=== PATIENT | male | born 1970 | race Caucasian/White ===

== ENCOUNTER → 2018-02-07 | Outpatient (CLI) | payer OTHER, MEDICARE ==
[~2018-02-07] MED LIST: HYDR-3820; HYDR-3820 PO; METH750T3; NORT10CA
--- NOTE | 2018-02-07 16:18 | Diagnostic Imaging Report ---
EXAMINATION: Lumbar spine at 4:13 p.m. INDICATION: Back pain. AP, lateral, and spot lateral views were obtained. There are no prior studies available for comparison. FINDINGS: There are intervertebral cages at the L5-S1 level. The orthopedic hardware seems to be in good position. The other intervertebral spaces appear to be fairly well maintained. There is no fracture or acute bony abnormality evident. There is no sign of a paraspinal mass. There is mild symmetrical sclerosis of the sacroiliac joints. IMPRESSION: 1. There is no evidence for an acute bony abnormality. 2. The intervertebral cages at the L5-S1 level appear to be in good position. 3. If clinical concern regarding an underlying abnormality persists and further imaging is desired, then MRI would be recommended. Dictated by: Dictated on workstation # [id number]
--- NOTE | 2018-02-07 16:22 | Diagnostic Imaging Report ---
EXAMINATION: Left hip at 4:14 p.m. INDICATION: Hip pain. AP and lateral views were obtained. There are no prior studies available for comparison. FINDINGS: There is no fracture, dislocation, or acute bony abnormality evident. The hip joint itself is fairly well maintained. There is a small 9 mm rounded area of low density with a thin sclerotic border in the femoral neck. This is of uncertain etiology but most likely a benign process. The soft tissues are unremarkable. IMPRESSION: There is no evidence for an acute bony abnormality. Dictated by: Dictated on workstation # [id number]
== END ==
LOC: RAD 15:35
PROVIDERS: ATTEND Family Medicine
DX: M25.552 Pain in left hip (principal); M54.5 Low back pain
CPT/HCPCS: 72100; 73502

== ENCOUNTER 2018-02-10 06:10 | Emergency (ER) | payer OTHER, MEDICARE ==
[~2018-02-10] VITALS: Ht 188 cm; Wt 99.8 kg
[2018-02-10] MEDS ORDERED: METH750T3 (07:16)
[2018-02-10] MEDS ORDERED: NORT10CA (07:16)
[2018-02-10] MEDS ORDERED: HYDR-3820 (07:16)
[2018-02-10] MEDS ORDERED: HYDROmorphone 1 MG/ML (DILAUDID) 1 ML SYRINGE IM STA (07:18)
--- NOTE | 2018-02-10 07:46 | ED Hip Pain/Injury ---
General Chief Complaint: Hip/Pelvic Problems Stated Complaint: LEFT HIP PAIN Nursing Triage Note: ARRIVED VIA AMB TO ROOM 07 ON [facility] WITH COMPLAINTS OF SEVERE LEFT HIP PAIN THAT STARTED A WEEK AGO MONDAY. NON INUJURY. HAS BEEN TO THE DR AND ER. HAS BEEN PRESCRIBED PAIN MEDS AND STEROIDS. Source: patient Exam Limitations: no limitations History of Present Illness Date Seen by Provider: Feb 10, 2018 Time Seen by Provider: 07:05 Initial Comments Here with report of pain to the left hip that started about a week ago. States he was walking across the driveway and had sharp pain. This has worsened and persisted since. He has had x-ray done by his provider. He was due to have CT scan of his extremity as well due to abnormality noted that appears to be a cyst in the left hip. Also has history of lumbar surgery with orthopedic care. His pain meds are not working. Pain radiates from the left hip down the left leg. Here due to intractable pain. Timing/Duration: week, getting worse Severity: moderate, severe Location: hip (L) Method of Injury: unknown Modifying Factors: Worse With Immobilization; Improves With Movement, Improves With Pain Medication Associated Symptoms: No fever, No groin pain; pain radiating to knees, trouble walking Allergies and Home Medications Allergies Coded Allergies: morphine (Verified Allergy, Unknown, NAUSEA, 02/10/18) Patient Home Medication List Home Medication List Reviewed: Yes Constitutional: see HPI; No chills, No fever EENTM: no symptoms reported Respiratory: no symptoms reported; No short of breath, No wheezing Cardiovascular: No chest pain, No edema Gastrointestinal: No abdominal pain, No nausea, No vomiting Genitourinary: no symptoms reported Musculoskeletal: see HPI, joint pain, muscle pain, muscle stiffness Skin: no symptoms reported All Other Systems Reviewed Negative Unless Noted: Yes Past Sicnusz-Csfrjp-Qthsun Hx Past Med/Social Hx: Reviewed Nursing Past Med/Soc Hx Patient Social History Alcohol Use: Denies Use Recreational Drug Use: No Smoking Status: Current Everyday Smoker Recent Foreign Travel: No Contact w/Someone Who Travel: No Recent Infectious Disease Expo: No Past Medical History Surgeries: Yes Gallbladder, Orthopedic Respiratory: No Cardiac: No Neurological: No Genitourinary: No Gastrointestinal: No Musculoskeletal: Yes (CAGE FUSION, ) HEENT: No Cancer: No Psychosocial: No Family Medical History Reviewed Nursing Family Hx Physical Exam Vital Signs Vital Signs - First Documented 02/10/18 07:00 Temp 98.0 Pulse 56 Resp 18 B/P (MAP) 155/103 (120) Pulse Ox 97 O2 Delivery Room Air Capillary Refill : Less Than 3 Seconds General Appearance: No Apparent Distress, WD/WN Neck: Non Tender, Supple Cardiovascular: Regular Rate, Rhythm, No Murmur Respiratory: Lungs Clear, Normal Breath Sounds Gastrointestinal: Non Tender, Soft Back: Normal Inspection, No CVA Tenderness, No Vertebral Tenderness Extremity: Normal Range of Motion, Non Tender Neurologic/Psychiatric: Alert, Oriented x3 Skin: Normal Color, Warm/Dry Progress/Results/Core Measures Results/Orders My Orders Orders - RONY SMITH MD Hydromorphone Injection (Dilaudid Inje (02/10/18 07:18) Ct Lumbar Spine Wo (02/10/18 07:20) Ct Extremity Lower Left Wo (02/10/18 07:20) Hydromorphone Injection (Dilaudid Inje (02/10/18 07:47) Vital Signs/I&O 02/10/18 07:00 Temp 98.0 Pulse 56 Resp 18 B/P (MAP) 155/103 (120) Pulse Ox 97 O2 Delivery Room Air Blood Pressure Mean: 120 Progress Progress Note : Progress Note Seen and evaluated. We will get CT scan of the lumbar spine and left hip given persistence and worsening of symptoms. Dilaudid 2 mg IM ordered. 0745: Patient unable to lie flat on CT table. Dilaudid 1 mg IM ordered to help pain. Monitor patient. 0900: Overall tolerating pain better. CT results discussed with the patient. I will send a copy of the chart over to Dr. Phillips. I do believe he needs orthopedic referral given the CT findings of the hip. 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 Discharged home with return precautions. Patient and family verbalize understanding instructions and agreement with plan. Diagnostic Imaging Diagonstic Imaging: CT Plain Films/CT/US/NM/MRI: other Comments [facility] [place], [place] NAME: FELIBERTO PATEL MED REC#: [id number] PT STATUS: REG ER : 1970 PHYSICIAN: RONY SMITH MD ADMIT DATE: 02/10/18/ER Draft Date of Exam:02/10/18 CT LUMBAR SPINE WO PROCEDURE: CT lumbar spine without contrast. TECHNIQUE: Multiple contiguous axial images were obtained through the lumbar spine without the use of intravenous contrast. Sagittal and coronal reformations were then performed. INDICATION: Prior lumbar spine surgery. Left hip pain. COMPARISON: Lumbar spine radiographs 02/07/2018. FINDINGS: There are 5 lumbar type vertebral bodies. Normal alignment. Vertebral body heights are preserved. No fractures. There are postoperative findings of an interbody fusion at L5-S1. No fractures. No evidence of high-grade spinal canal narrowing on this noncontrast exam. No high-grade osseous neural foraminal narrowing. Mild atherosclerotic calcifications. The visualized abdominal and pelvic contents are otherwise unremarkable. IMPRESSION: 1. No acute CT findings in the lumbar spine. No evidence of high-grade neural impingement on this noncontrast exam. 2. Interbody fusion at L5-S1. Dictated on workstation # [id number] Dict: 02/10/18 08 Trans: 02/10/18 0829 [facility] [id number] Interpreted by: DARIUSZ PHILLIPS MD Electronically signed by: Reviewed: Reviewed by Me Diagonstic Imaging: CT Plain Films/CT/US/NM/MRI: other Comments [facility]IA [place], [place] NAME: FELIBERTO PATEL Ally [facility] REC#: [id number] PT STATUS: REG ER : 1970 PHYSICIAN: RONY SMITH MD ADMIT DATE: 02/10/18/ER Draft Date of Exam:02/10/18 CT EXTREMITY LOWER LEFT WO PROCEDURE: CT left lower extremity without contrast. TECHNIQUE: Multiple contiguous axial images were obtained through the left lower extremity without the use of intravenous contrast. Sagittal and coronal reformations were then performed. INDICATION: Left hip pain for one week. COMPARISON: Lumbar spine CT performed concurrently. FINDINGS: No fracture in the left hemipelvis or proximal left femur. 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 No acetabular retroversion. No accelerated secondary osteoarthritic changes in the left hip. No appreciable hip effusion by CT. The left hip musculature and proximal thigh musculature is grossly normal. No free pelvic fluid. No inguinal lymphadenopathy or hernia. IMPRESSION: 1. No acute osseous abnormality about the left hip. 2. Morphology of the proximal femur that can result in Cam-type femoroacetabular impingement. Dictated on workstation # [id number] Dict: 02/10/18816 Trans: 02/10/18 0822 [facility] [id number] Interpreted by: MERNA LIMA MD Electronically signed by: Reviewed: Reviewed by Me Departure Impression Primary Impression: Left hip pain Disposition: HOME, SELF-CARE Condition: Stable Departure-Patient Inst. Decision time for Depature: 09:13 Referrals: JAMILA PHILLIPS DO (PCP/Family) Primary Care Physician Patient Instructions: Hip Bursitis (DC) Add. Discharge Instructions: All discharge instructions reviewed with patient and/or family. Voiced understanding. Take medications as directed. Follow-up with your doctor on Monday for recheck and further evaluation and you should seek orthopedic referral for evaluation of the hip as well. Return for worse pain, swelling, weakness, fever or other concerns as needed. Scripts Hydrocodone/Acetaminophen (Hydrocodon-Acetaminophn 10-325) 1 Each Tablet 1 EACH PO Q6H PRN for PAIN, #16 TAB 0 Refills Prov: RONY SMITH MD 02/10/18 Copy Copies To 1: JAMILA PHILLIPS TIMOTHY D MD Feb 10, 2018 07:46
[2018-02-10] MEDS: HYDROmorphone 1 MG/ML (DILAUDID) 1 ML SYRINGE IM STA ×2 (07:50→07:54)
--- NOTE | 2018-02-10 08:23 | Diagnostic Imaging Report ---
PROCEDURE: CT left lower extremity without contrast. TECHNIQUE: Multiple contiguous axial images were obtained through the left lower extremity without the use of intravenous contrast. Sagittal and coronal reformations were then performed. INDICATION: Left hip pain for one week. COMPARISON: Lumbar spine CT performed concurrently. FINDINGS: No fracture in the left hemipelvis or proximal left femur. 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 No acetabular retroversion. No accelerated secondary osteoarthritic changes in the left hip. No appreciable hip effusion by CT. The left hip musculature and proximal thigh musculature is grossly normal. No free pelvic fluid. No inguinal lymphadenopathy or hernia. IMPRESSION: 1. No acute osseous abnormality about the left hip. 2. Morphology of the proximal femur that can result in Cam-type femoroacetabular impingement. Dictated by: Dictated on workstation # [id number]
--- NOTE | 2018-02-10 08:29 | Diagnostic Imaging Report ---
PROCEDURE: CT lumbar spine without contrast. TECHNIQUE: Multiple contiguous axial images were obtained through the lumbar spine without the use of intravenous contrast. Sagittal and coronal reformations were then performed. INDICATION: Prior lumbar spine surgery. Left hip pain. COMPARISON: Lumbar spine radiographs 02/07/2018. FINDINGS: There are 5 lumbar type vertebral bodies. Normal alignment. Vertebral body heights are preserved. No fractures. There are postoperative findings of an interbody fusion at L5-S1. No fractures. No evidence of high-grade spinal canal narrowing on this noncontrast exam. No high-grade osseous neural foraminal narrowing. Mild atherosclerotic calcifications. The visualized abdominal and pelvic contents are otherwise unremarkable. IMPRESSION: 1. No acute CT findings in the lumbar spine. No evidence of high-grade neural impingement on this noncontrast exam. 2. Interbody fusion at L5-S1. Dictated by: Dictated on workstation # [id number]
[2018-02-10] MEDS ORDERED: HYDR-3820 PO (09:14)
[2018-02-10 09:31] VITALS: BP 131/91
== END 2018-02-10 09:31 | disposition home or self-care (01) ==
LOC: EDUNIT# 06:10 → ER 06:13
DX: M25.552 Pain in left hip (principal); F17.210 Nicotine dependence, cigarettes, uncomplicated; Z98.890 Other specified postprocedural states; Z88.5 Allergy status to narcotic agent
CPT/HCPCS: 72131; 73700; 96372

== ENCOUNTER → 2018-02-20 | Outpatient (CLI) | payer OTHER, MEDICARE ==
[~2018-02-20] VITALS: Ht 188 cm; Wt 99.8 kg
[~2018-02-20] MED LIST changes: +GADOBUTROL 7.5 MMOL/7.5 ML (GADAVIST) VIAL IV ONE; +IOHEXOL 300 MG/ML 50 ML (OMNIPAQUE 300) VIAL IV ONE; +LIDOCAINE 1% INJ 20 ML 20 ML VIAL INJ ONE; +LIDOCAINE 1% INJ 20 ML 20 ML VIAL ONE
[2018-02-20 14:10] VITALS: BP 134/80
[2018-02-20 14:38] VITALS: BP 119/74
--- NOTE | 2018-02-20 17:10 | Diagnostic Imaging Report ---
EXAMINATION: Magnetic resonance imaging of the pelvis and left hip with intra-articular contrast. DATE: February 20, 2018. COMPARISON: Left hip arthrogram February 20, 2018. CT February 10, 2018. Left hip radiographs February 07, 2018. INDICATION: 47-year-old male, left hip pain. Femoroacetabular impingement. TECHNIQUE: Magnetic Resonance Imaging sequences were performed of the pelvis and left hip following the administration of intra-articular contrast. TENDONS AND MUSCLES: The gluteus sarmad muscles and their origins and insertions are intact bilaterally. The tendons and muscles of the greater trochanter - gluteus minimus, piriformis, and gluteus medius - are intact bilaterally. Both common hamstring attachments on the ischial tuberosities are intact, and the extensor muscles of the thigh are intact. The visualized portions of the flexors and adductor muscles of the thigh and their attachments on the pelvis and hips are intact. Both iliopsoas and iliacus muscles are intact. The bilateral iliopsoas tendons are intact. HIPS AND SACROILIAC JOINTS: There is a synovial herniation pit at the left femoral head-neck junction. There is lack of the normal concavity at the bilateral femoral head-neck junctions. There is no os acetabuli. There is a small cleft of contrast in the region of the posterosuperior labrum, which may relate to normal variant. The left hip labrum appears intact. There is no paralabral cyst. There is a small tear involving the right hip superior labrum, best seen on coronal T2 fat-saturation sequence image 18, without associated paralabral cyst. There is no right hip joint effusion. The articular cartilage at the left hip appears grossly intact. There is no intra-articular body or prominent synovitis. There is no pronounced joint space loss of the right hip. The sacroiliac joints are unremarkable. LUMBAR SPINE: There is spinal hardware at L5-S1. BONE: There is no acute fracture, bone contusion, or evidence of osteonecrosis. BURSAE AND SOFT TISSUES: The bursae and soft tissues surrounding the pelvis and hips are within normal limits. IMPRESSION: 1. Lack of normal concavity at the bilateral femoral head-neck junctions. There is a left-sided synovial herniation pit. These are morphologic features which may be associated with cam-type femoroacetabular impingement which would be a clinical diagnosis. The left hip labrum appears intact. There is a small tear of the right hip superior labrum without paralabral cyst. Articular cartilage appears grossly intact. 2. Intact muscles and tendons. 3. No acute fracture, bone contusion, or evidence of osteonecrosis. Dictated by: Dictated on workstation # [id number]
--- NOTE | 2018-02-20 19:17 | Diagnostic Imaging Report ---
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 FINDINGS The patient was brought to the procedure room and placed on the table in the supine position. The skin of the left hip was prepped and draped in usual sterile fashion. A small amount of 1% lidocaine was utilized for local anesthesia. A 20-gauge needle was advanced with placement of its tip at the femoral head and neck junction laterally. A 15 mL solution of iodinated contrast, normal saline and gadolinium was injected under fluoroscopic observation. The needle was withdrawn and hemostasis was obtained. A total of 55 seconds of fluoroscopy was utilized. The patient tolerated the procedure well was sent to MRI in satisfactory condition. IMPRESSION: Fluoroscopically assisted left hip injection of gadolinium contrast solution for MRI. Dictated by: Dictated on workstation # [id number]
== END ==
LOC: RAD 13:52
PROVIDERS: ATTEND Orthopaedic Surgery
DX: S73.101A Unspecified sprain of right hip, initial encounter (principal)
CPT/HCPCS: 27093; 73525; 73722

== ENCOUNTER → 2019-11-11 | Outpatient (CLI) | payer OTHER, MEDICARE ==
[~2019-11-11] MED LIST changes: +ACHYD1T; +ACHYD1T PO; -GADOBUTROL 7.5 MMOL/7.5 ML (GADAVIST) VIAL IV ONE; -HYDR-3820; -HYDR-3820 PO; -IOHEXOL 300 MG/ML 50 ML (OMNIPAQUE 300) VIAL IV ONE; -LIDOCAINE 1% INJ 20 ML 20 ML VIAL INJ ONE; -LIDOCAINE 1% INJ 20 ML 20 ML VIAL ONE; -NORT10CA; +NRT10C
--- NOTE | 2019-11-11 09:40 | Diagnostic Imaging Report ---
EXAMINATION: Chest, 2 views. HISTORY: Left-sided chest pain for 3 days. Blunt force injury to the chest. COMPARISON: None available. FINDINGS: The lung volumes are normal. No focal consolidation is seen. No large pleural effusion or pneumothorax is seen. The cardiomediastinal silhouette is normal in size and contour. No acute osseous abnormality is seen. IMPRESSION: 1. No acute pleuroparenchymal process. 2. The report was called to Alexia Ruth APRN, by MANUEL@ 9:39 AM. Dictated by: Dictated on workstation # [id number]
== END ==
LOC: RAD 09:13
PROVIDERS: ATTEND Nurse Practitioner Family
DX: S29.9XXA Unspecified injury of thorax, initial encounter (principal)
CPT/HCPCS: 71046

== ENCOUNTER → 2022-12-20 | Outpatient (CLI) | payer MEDICARE, OTHER ==
[~2022-12-20] MED LIST changes: +METH-732; -METH750T3
--- NOTE | 2022-12-20 16:47 | Diagnostic Imaging Report ---
PROCEDURE: CT neck soft tissue without contrast. TECHNIQUE: Multiple contiguous axial images were obtained through the neck without the use of intravenous contrast. Auto Exposure Controls were utilized during the CT exam to meet ALARA standards for radiation dose reduction. INDICATION: Left-sided neck mass. COMPARISON: None. FINDINGS: A pathologically enlarged lymph node is seen in the left neck in the area of palpable abnormality measuring 2.6 x 1.7 cm. Additional mildly prominent lymph nodes are seen bilaterally. There is asymmetric soft tissue fullness in the left tonsillar bed relative to the right. No discrete mass is identified. No airway compromise. The laryngeal structures are symmetric and unremarkable. No prevertebral or retropharyngeal fluid collections. The parotid, submandibular and thyroid gland are unremarkable. The vascular structures the neck demonstrate no evidence of high-grade stenosis on this nondedicated exam. The visualized lung apices are clear. The visualized intracranial contents demonstrate no evidence of pathologic intracranial enhancement or intracranial mass effect. Visualized orbital contents are unremarkable. The visualized paranasal sinuses are clear. The mastoids and middle ears are clear. No acute osseous abnormality in the cervical spine. IMPRESSION: 1. Pathologically enlarged lymph node in the left neck, concerning for malignancy. There is nonspecific soft tissue fullness in the left tonsillar bed which may represent a site of primary malignancy. Contrast enhanced study would be of help to further characterize. Direct visualization is also recommended. Dictated by: Dictated on workstation # [id number]
== END ==
LOC: RAD 09:13
PROVIDERS: ATTEND Family Medicine
DX: R59.0 Localized enlarged lymph nodes (principal)
CPT/HCPCS: 70490

== ENCOUNTER 2023-03-30 05:40 | Outpatient (CLI) | payer MEDICARE ==
[~2023-03-30] VITALS: Ht 188 cm; Wt 92.1 kg
[2023-03-30] MEDS ORDERED: GBPN600T PO (09:49)
[2023-03-30] MEDS ORDERED: FENO134C21 PO (09:49)
[2023-03-30] MEDS ORDERED: ACET160S PO (09:49)
[2023-03-30] MEDS ORDERED: FLUO20CA42 PO (09:49)
[2023-03-30] MEDS ORDERED: [UNRECOGNIZED DRUG - CODE] PO (09:49)
[2023-03-31] MEDS ORDERED: HYDR-3820 PO (17:57)
[2023-03-31] MEDS ORDERED: GABA-490 PO (17:57)
[2023-03-31] MEDS ORDERED: PRAV40TA2 PO (17:57)
[2023-03-31] MEDS ORDERED: ASPI-999 PO (17:57)
[2023-03-31] MEDS ORDERED: FLUO20CA48 PO (17:57)
[2023-03-31] MEDS ORDERED: ENAL-70 PO (17:57)
[2023-04-01] MEDS ORDERED: PROM25TA14 PO (12:14)
== END 2023-03-30 11:45 | disposition home or self-care (01) ==
LOC: PREOP 05:40
PROVIDERS: ATTEND Surgery
DX: Z01.818 Encounter for other preprocedural examination (principal)

== ENCOUNTER 2023-03-31 03:25 | Inpatient (IN) | payer MEDICARE ==
[~2023-03-31] VITALS: Ht 188 cm; Wt 88.0 kg
[2023-03-31] VITALS (10 sets, daily range): BP systolic 122–166; BP diastolic 70–99
[~2023-03-31 03:25] MED LIST changes: +ACET160S PO; +FENO134C21 PO; +FLUO20CA42 PO; +GBPN600T PO; +[UNRECOGNIZED DRUG - CODE] PO
[2023-03-31] MEDS ORDERED: ONDANSETRON 4 MG/2 ML (SDV) Z0FRAN IV PRN ×2 (04:15→09:15)
[2023-03-31] MEDS ORDERED: CEFEPIME INJECTION 1,000 MG in NS (IVPB) 50 ML 50 ML IV ONE (04:15)
[2023-03-31] MEDS ORDERED: LACTATED RINGERS 1,000 ML IV ONE ×2 (04:15)
[2023-03-31 04:31] LABS: BASOPHILS % (AUTO) 1 % (0-10); EOSINOPHILS # (AUTO) 0.3 10^3/uL (0.0-0.3); EOSINOPHILS % (AUTO) 5 % (0-10); HEMATOCRIT 42 % (40-54); HEMOGLOBIN 13.9 g/dL (13.3-17.7); LYMPHOCYTES # (AUTO) 1.1 10^3/uL (1.0-4.0); LYMPHOCYTES % (AUTO) 20 % (12-44); MEAN CORPUSCULAR HEMOGLOBIN 30 pg (25-34); MEAN CORPUSCULAR HGB CONC 33 g/dL (32-36); MEAN CORPUSCULAR VOLUME 89 fL (80-99); MEAN PLATELET VOLUME 10.1 fL (9.0-12.2); MONOCYTES # (AUTO) 0.7 10^3/uL (0.0-1.0); MONOCYTES % (AUTO) 12 % (0-12); NEUTROPHILS # (AUTO) 3.5 10^3/uL (1.8-7.8); NEUTROPHILS % (AUTO) 62 % (42-75); PLATELET COUNT 239 10^3/uL (130-400); WHITE BLOOD COUNT 5.6 10^3/uL (4.3-11.0)
[2023-03-31 04:40] LABS: ALBUMIN 4.4 GM/DL (3.2-4.5)
[2023-03-31 04:41] LABS: POTASSIUM 4.1 MMOL/L (3.6-5.0); PROTHROMBIN TIME PATIENT 13.2 SEC (12.2-14.7)
[2023-03-31 04:42] LABS: CALCIUM 10.2 MG/DL (8.5-10.1)
[2023-03-31 04:43] LABS: TOTAL PROTEIN 7.2 GM/DL (6.4-8.2)
[2023-03-31 04:45] LABS: BILIRUBIN,TOTAL 0.5 MG/DL (0.1-1.0)
[2023-03-31 04:47] LABS: CREATININE SERUM 0.94 MG/DL (0.60-1.30)
[2023-03-31 05:10] LABS: TSH (THYROID ANALYZER) 0.58 UIU/ML (0.35-4.94)
[2023-03-31] MEDS ORDERED: fentaNYL INJ 100 MCG/2 ML AMP IVP ONE ×2 (05:30→07:30)
[2023-03-31 06:07] LABS: BILIRUBIN,URINE NEGATIVE (NEGATIVE); CLARITY,URINE CLEAR; COLOR,URINE YELLOW; GLUCOSE, URINE (UA) NEGATIVE (NEGATIVE); KETONES,URINE NEGATIVE (NEGATIVE); LEUKOCYTE ESTERASE ,URINE NEGATIVE (NEGATIVE); NITRITE,URINE NEGATIVE (NEGATIVE); PH,URINE 6.5 (5-9); PROTEIN,URINE NEGATIVE (NEGATIVE)
[2023-03-31 06:17] LABS: BACTERIA,URINE NEGATIVE /HPF
--- NOTE | 2023-03-31 06:23 | ED General ---
General Chief Complaint: Abdominal/GI Problems Stated Complaint: VOMITING Nursing Triage Note: PT AMB TO RM 5 W C/O N/V, KNO[place], AND ABD PAIN THAT BEGAN EARLIER THIS EVENING. PT CURRENTLY RECEIVING DAILY RADIATION [place] FOR THROAT CA. A&OX4. Source of Information: Patient, Spouse History of Present Illness Date Seen by Provider: Mar 31, 2023 Time Seen by Provider: 04:08 Initial Comments PT ARRIVES VIA POV FROM HOME WITH PT WAS RECENTLY DX WITH TONSILLAR CANCER, AND HAD TONSILLECTOMY AND THROAT SURGERY AT ON 02/08/23 HE DID HAVE COMPLICATION OF SURGERY--RUPTURED LEFT CAROTID ARTERY ON 02/11 AND IT WAS SURGICALLY REPAIRED. HE STARTED HAVING DAILY RADIATION HERE BY DR. WATTS LAST WEEK--HE HAS HAD 8 TREATMENTS AND IS DUE TO HAVE ANOTHER ONE TODAY FOR THE LAST 2 DAYS HE HAS BEEN HAVING INCREASING THROAT PAIN AND DIFFICULTY SWALLOWING HE HAS NOT BEEN ABLE TO EAT FOR THE LAST 2 DAYS AND IS HAVING DIFFICULTY SWALLOWING SALIVA HE STATES HE HAS BEEN NAUSEATED AND BEGAN VOMITING AND SPITTING UP TONIGHT. HE C/O GENERALIZED ABDOMINAL PAIN HE HAS A HEADACHE WELL. HE HAS BEEN HAVING CHILLS, BUT NO REPORTED FEVER NO COUGH OR SHORTNESS OF BREATH OR WHEEZING HE HAS CHRONIC BACK PAIN BUT IT HAS BEEN WORSE THE LAST 2 DAYS HE HAS HAD PRIOR LUMBAR SPINE SURGERY HE RATES HIS THROAT PAIN 910 HE TOOK A HYDROCODONE AT 1999 LAST NIGHT. HE HAS HAD DIFFICULTY SWALLOWING PILLS THE LAST 2 DAYS. PT IS SCHEDULED TO HAVE A PEG TUBE PLACED BY DR. NAVARRO ON MONDAY, BUT PT STATES HE IS IN TOO MUCH PAIN AND IS UNABLE TO EAT AND STATES HE DOES NOT THINK HE CAN WAIT UNTIL THEN. PT SMOKED 1 PPD, QUIT IN FEBRUARY. NO ALCOHOL OR DRUG USE. HE HAS HAD COVID VACCINE X 2, AND FLU VACCINE. PCP: DR. ROGEL. ENT: Allergies and Home Medications Allergies Coded Allergies: morphine (Verified Allergy, Unknown, NAUSEA, 02/10/18) Patient Home Medication List Home Medication List Reviewed: Yes Acetaminophen (Acetaminophen) 160 Mg/5 Ml (5 Ml) Solution, 500 MG PO BID, (Reported) Entered as Reported by: LEE BURNETT on 03/30/23 0942 Amlodipine/Atorvastatin (Amlodipine-Atorvast 10-40 mg) 10 Mg-40 Mg Tablet, 1 EACH PO HS, (Reported) Entered as Reported by: LEE BURNETT on 03/30/23948 Fenofibrate,Micronized (Fenofibrate) 134 Mg Capsule, 134 MG PO DAILY, (Reported) Entered as Reported by: LEE BURNETT on 03/30/23948 Fluoxetine HCl (Prozac) 20 Mg Capsule, 20 MG PO DAILY, (Reported) Entered as Reported by: LEE BURNETT on 03/30/23948 Gabapentin (Gabapentin) 600 Mg Tablet, 300 MG PO TID, (Reported) Entered as Reported by: LEE BURNETT on 03/30/23948 Hydrocodone Bit/Acetaminophen (HYDROcodone/APAP 10/325 TABLET) 1 Each Tablet, (Reported) Entered as Reported by: RICHARD CAIN on 02/10/18715 Methocarbamol (Methocarbamol) 750 Mg Tablet, (Reported) Entered as Reported by: RICHARD CAIN on 02/10/18715 Discontinued Medications Hydrocodone Bit/Acetaminophen (HYDROcodone/APAP 10/325 TABLET) 1 Each Tablet, 1 EACH PO Q6H PRN for PAIN Discontinued Reason: No Longer Taking Prescribed by: RONY SMITH on 02/10/18 0914 Nortriptyline HCl (Nortriptyline HCl) 10 Mg Capsule, (Reported) Discontinued Reason: No Longer Taking Entered as Reported by: RICHARD CAIN on 02/10/18715 Review of Systems Review of Systems Constitutional: see HPI, chills, malaise, weakness EENTM: see HPI Respiratory: no symptoms reported; No cough, No short of breath, No stridor, No wheezing Cardiovascular: no symptoms reported; No chest pain Gastrointestinal: see HPI, abdominal pain, nausea, vomiting Genitourinary: no symptoms reported Musculoskeletal: see HPI, back pain Skin: no symptoms reported Psychiatric/Neurological: See HPI, Headache Hematologic/Lymphatic: No Symptoms Reported Immunological/Allergic: no symptoms reported Past Lufvywm-Emgplk-Eznumz Hx Patient Social History Tobacco Use?: Yes Tobacco type used: Cigarettes Smoking Status: Former Smoker Use of E-Cig and/or Vaping dev: No Substance use?: No Alcohol Use?: No Past Medical History Surgery/Hospitalization HX: THROAT CANCER DX JANUARY 2023 Surgeries: Yes Gallbladder, Orthopedic, Tonsillectomy, Vascular Surgery Respiratory: No Cardiac: No Neurological: No Genitourinary: No Gastrointestinal: Yes (S/P CHOLECYSTECTOMY) Gall Bladder Disease Musculoskeletal: Yes (LUMBAR SPINE SURGERY--CAGE AND FUSION) Degenerate Disk Disease, Chronic Back Pain Endocrine: No HEENT: Yes (TONSILLAR CANCER DX JANUARY 2023) Cancer: Yes (TONSIILAR) Did You Recieve Any Treatments: Yes What Type of Treatment Did You: Radiation, Surgical Intervention TONSILLAR CANCER DX JANUARY 2023 TONSILLECTOMY / THROAT SURGERY 02/08/23 CURRENTLY RECEIVING RADIATION OF 03/31/23 Psychosocial: No Family Medical History SOCIAL HISTORY: -SMOKED 1 PPD, QUIT FEBRUARY 2023 -DENIES ETOH -DENIES DRUGS PAST SURGICAL HISTORY: -LUMBAR SPINE SURGERY--FUSION AND CAGE -CHOLECYSTECTOMY -TONSILLECTOMY WITH THROAT SURGERY 02/08/23 AT FOR TONSILLAR CANCER. COMPLICATED BY LEFT CAROTID ARTERY RUPTURE ON 02/11/23 AND HAD SURGICAL REPAIR. Physical Exam Vital Signs Vital Signs - First Documented 03/31/23 04:08 Temp 36.6 Pulse 65 Resp 18 B/P (MAP) 134/87 (103) Pulse Ox 97 O2 Delivery Room Air Capillary Refill : Less Than 3 Seconds Height, Weight, BMI Height: 6'2.00" Weight: 220lbs. 0.0oz. 99.486017nf; 25.00 BMI Method:Stated General Appearance: WD/WN, Other (LOOKS UNCOMFORTABLE; CONSTANTLY GAGGING AND SPITTING UP SALIVA. ) HEENT: PERRL/EOMI, Other (DIFFICULTY FULLY OPENING MOUTH DUE TO THROAT PAIN. THERE DOES APPEAR TO BE EDEMA AND ERYTHEMA TO POSTERIOR PHARYNX BUT LIMITED VISUALIZATION DUE TO PT DISCOMFORT) Neck: Normal Inspection Respiratory: Normal Breath Sounds, No Accessory Muscle Use, No Respiratory Distress Cardiovascular: Regular Rate, Rhythm, No JVD, No Murmur, Normal Peripheral Pulses Gastrointestinal: Soft, Tenderness (MILD EPIGASTRIC TENDERNESS) Back: No CVA Tenderness Extremity: Normal Capillary Refill, Normal Inspection, No Pedal Edema Neurologic/Psychiatric: Alert, Oriented x3, No Motor/Sensory Deficits, remote mortgage underwriter II- XII Norm as Tested Skin: Normal Color, Warm/Dry Focused Exam Lactate Level 03/31/23 04:35: Lactic Acid Level 0.65 Lactic Acid Level Laboratory Tests Test 03/31/23 04:35 Lactic Acid Level 0.65 MMOL/L (0.50-2.00) Progress/Results/Core Measures Suspected Sepsis SIRS Temperature: Pulse: 65 Respiratory Rate: 18 Laboratory Tests 03/31/23 04:15: White Blood Count 5.6 Blood Pressure 134 /87 Mean: 103 03/31/23 04:35: Lactic Acid Level 0.65 Laboratory Tests 03/31/23 04:15: Creatinine 0.94, INR Comment 1.0, Platelet Count 239, Total Bilirubin 0.5 Results/Orders Lab Results Laboratory Tests Test 03/31/23 04:06 03/31/23 04:15 03/31/23 04:17 03/31/23 04:35 Range/Units Urine Color YELLOW Urine Clarity CLEAR Urine pH 6.5 5-9 Urine Specific [place] 1.010 L 1.016-1.022 Urine Protein NEGATIVE NEGATIVE Urine Glucose (UA) NEGATIVE NEGATIVE Urine Ketones NEGATIVE NEGATIVE Urine Nitrite NEGATIVE NEGATIVE Urine Bilirubin NEGATIVE NEGATIVE Urine Urobilinogen 1.0 < = 1.0 MG/DL Urine Leukocyte Esterase NEGATIVE NEGATIVE Urine RBC (Auto) NEGATIVE NEGATIVE Urine RBC NONE /HPF Urine WBC NONE /HPF Urine Crystals NONE /LPF Urine Bacteria NEGATIVE /HPF Urine Casts NONE /LPF Urine Mucus NEGATIVE /LPF Urine Culture Indicated NO White Blood Count 5.6 4.3-11.0 10^3/uL Red Blood Count 4.70 4.30-5.52 10^6/uL Hemoglobin 13.9 13.3-17.7 g/dL Hematocrit 42 40-54 % Mean Corpuscular Volume 89 80-99 fL Mean Corpuscular Hemoglobin 30 25-34 pg Mean Corpuscular Hemoglobin Concent 33 32-36 g/dL Red Cell Distribution Width 12.2 10.0-14.5 % Platelet Count 239 130-400 10^3/uL Mean Platelet Volume 10.1 9.0-12.2 fL Immature Granulocyte % (Auto) 0 % Neutrophils (%) (Auto) 62 42-75 % Lymphocytes (%) (Auto) 20 12-44 % Monocytes (%) (Auto) 12 0-12 % Eosinophils (%) (Auto) 5 0-10 % Basophils (%) (Auto) 1 0-10 % Neutrophils # (Auto) 3.5 1.8-7.8 10^3/uL Lymphocytes # (Auto) 1.1 1.0-4.0 10^3/uL Monocytes # (Auto) 0.7 0.0-1.0 10^3/uL Eosinophils # (Auto) 0.3 0.0-0.3 10^3/uL Basophils # (Auto) 0.0 0.0-0.1 10^3/uL Immature Granulocyte # (Auto) 0.0 0.0-0.1 10^3/uL Prothrombin Time 13.2 12.2-14.7 SEC INR Comment 1.0 0.8-1.4 Activated Partial Thromboplast Time 30 24-35 SEC Sodium Level 141 135-145 MMOL/L Potassium Level 4.1 3.6-5.0 MMOL/L Chloride Level 106 98-107 MMOL/L Carbon Dioxide Level 26 21-32 MMOL/L Anion Gap 9 5-14 MMOL/L Blood Urea Nitrogen 10 7-18 MG/DL Creatinine 0.94 0.60-1.30 MG/DL Estimat Glomerular Filtration Rate 98 BUN/Creatinine Ratio 11 Glucose Level 110 H 70-105 MG/DL Calcium Level 10.2 H 8.5-10.1 MG/DL Corrected Calcium 9.9 8.5-10.1 MG/DL Total Bilirubin 0.5 0.1-1.0 MG/DL Aspartate Amino Transf (AST/SGOT) 22 5-34 U/L Alanine Aminotransferase (ALT/SGPT) 25 0-55 U/L Alkaline Phosphatase 46 40-136 U/L Total Protein 7.2 6.4-8.2 GM/DL Albumin 4.4 3.2-4.5 GM/DL Amylase Level 115 25-125 U/L Lipase 29 8-78 U/L TSH [place] Testing 0.58 0.35-4.94 UIU/ML Monoscreen NEGATIVE NEGATIVE Influenza Type A (RT-PCR) Not Detected Not Detecte Influenza Type B (RT-PCR) Not Detected Not Detecte SARS-CoV-2 RNA (RT-PCR) Not Detected Not Detecte Lactic Acid Level 0.65 0.50-2.00 MMOL/L Test 03/31/23 05:15 Range/Units Group A Streptococcus Screen NEGATIVE NEGATIVE My Orders Orders - ESTELLA FOUNTAIN DO Ed Iv/Invasive Line Start (03/31/23 04:06) Monitor-Rhythm Ecg Trace Only (03/31/23 04:06) Amylase (03/31/23 04:06) Cbc With Automated Diff (03/31/23 04:06) Comprehensive Metabolic Panel (03/31/23 04:06) Lipase (03/31/23 04:06) Ua Culture If Indicated (03/31/23 04:06) Ed Iv/Invasive Line Start (03/31/23 04:06) Lactated Ringers (Lr 1000 Ml Iv Solution (03/31/23 04:15) Covid 19 Inhouse Test (03/31/23 04:14) Blood Culture (03/31/23 04:14) Sputum Culture (03/31/23 04:14) Urine Culture (03/31/23 04:14) Protime With Inr (03/31/23 04:14) Partial Thromboplastin Time (03/31/23 04:14) Chest 1 View, Ap/Pa Only (03/31/23 04:14) Ed Iv/Invasive Line Start (03/31/23 04:14) Ed Iv/Invasive Line Start (03/31/23 04:14) Vital Signs Adult Sepsis Patie Q15M (03/31/23 04:14) Ondansetron Injection (Zofran Injectio (03/31/23 04:15) O2 (03/31/23 04:14) Remove Rings In Anticipation O (03/31/23 04:14) Lactic Acid Analyzer (03/31/23 04:14) Lactated Ringers (Lr 1000 Ml Iv Solution (03/31/23 04:15) Cefepime Injection (Maxipime Injection) (03/31/23 04:15) Influenza A And B By Pcr (03/31/23 04:14) Monotest (03/31/23 04:14) Rapid Strep A Screen (03/31/23 04:14) Thyroid Analyzer (03/31/23 04:14) Fentanyl Inj (Sublimaze Injection) (03/31/23 05:30) Ct Neck/Chest/Abdomen/Pelvis W (03/31/23 05:19) Throat Culture Strep A Confirm (03/31/23 05:15) Iohexol Injection (Omnipaque 350 Mg/Ml 1 (03/31/23 06:30) Received Contrast (Hold Metformin- Contr (03/31/23 06:30) Sodium Chloride Flush (Catheter Flush Sy (03/31/23 06:30) Ns (Ivpb) 100 Ml (Sodium Chloride 0.9% 1 (03/31/23 06:30) Fentanyl Inj (Sublimaze Injection) (03/31/23 07:30) Ed Admission (Communication) (03/31/23 07:18) Medications Given in ED Current Medications Medications Dose Ordered Sig/Ricky Route Start Time Stop Time Status Last Admin Dose Admin Cefepime HCl 1000 mg/Sodium Chloride 50 ml @ 100 mls/hr ONCE ONCE IV 03/31/23 04:15 03/31/23 04:44 DC 03/31/23 05:54 100 MLS/HR Fentanyl Citrate 50 mcg ONCE ONCE IVP 03/31/23 05:30 03/31/23 05:31 DC 03/31/23 05:54 50 MCG Iohexol 100 ml ONCE ONCE IV 03/31/23 06:30 03/31/23 06:31 DC 03/31/23 06:29 100 ML Lactated Ringer's 1,000 ml @ 0 mls/hr Q0M ONCE IV 03/31/23 04:15 03/31/23 04:16 DC 03/31/23 04:36 0 MLS/HR Lactated Ringer's 1,000 ml @ 0 mls/hr Q0M ONCE IV 03/31/23 04:15 03/31/23 04:17 DC 03/31/23 05:55 0 MLS/HR Ondansetron HCl 4 mg PRN PRN IV 03/31/23 04:15 03/31/23 04:36 DC 03/31/23 04:36 4 MG Sodium Chloride 10 ml NEEDED PRN IV 03/31/23 06:30 03/31/23 06:29 10 ML Sodium Chloride 100 ml ONCE ONCE IV 03/31/23 06:30 03/31/23 06:31 DC 03/31/23 06:29 90 ML Vital Signs/I&O 03/31/23 04:08 Temp 36.6 Pulse 65 Resp 18 B/P (MAP) 134/87 (103) Pulse Ox 97 O2 Delivery Room Air Capillary Refill : Less Than 3 Seconds Blood Pressure Mean: 103 Progress Note : Progress Note VITALS ON ARRIVAL: TEMP 36.6=97.8, HR 65, RR 18, BP 134/87, O2 SAT 97% ON ROOM AIR GIVEN: -IV FLUIDS -ZOFRAN -FENTANYL LABS INCLUDING CBC, CMP, UA ALL ESSENTIALLY NORMAL CT SHOWS MUCOSAL THICKENING IN PHARYNGEAL AREA, WITH 8MM AREA OF POSSIBLE ABSCESS. NO ACUTE PROCESS IN CHEST OR ABDOMEN VITALS REMAIN STABLE NO DETERIORATION IN PT'S CONDITION DURING ER STAY SYMPTOMS IMPROVED SLIGHTLY WITH MEDICATIONS DISCUSSED TEST RESULTS, NEED FOR ADMIT AND PT IS AGREEABLE TO PLAN REVIEWED PRIOR RECORDS--SINGLE ER VISIT IN 2018. Diagnostic Imaging Comments CT--[place] [address] CT neck, chest, abdomen and pelvis with IV contrast. CT NECK: The epiglottis is normal. There is no prevertebral soft tissue swelling. Thyroid is normal. Parotid glands are normal. Submandibular glands are unremarkable. There is left-sided pharyngeal mucosal thickening with loss of the parapharyngeal fat planes on the left. There is a 8 mm lesion in the right pharyngeal mucosa is hyperemic rim in a low density center. This could be a tiny abscess. Appendix is unremarkable. IMPRESSION: Left sided mucosal thickening with loss of the parapharyngeal fat planes. This may be the primary location for the clinical history of throat cancer. There is a small lesion on the right side in the tonsil that could be a small abscess. CT CHEST: Lungs are clear. There are no effusions or pneumothoraces. There is no hilar or mediastinal lymphadenopathy. IMPRESSION: Unremarkable CT chest. CT abdomen pelvis with contrast The liver appears normal. Gallbladder surgically absent. Pancreas is normal. Spleen is not enlarged. Kidneys and adrenals appear normal. There is calcific atherosclerosis of aorta with some mural thrombus but no discrete aneurysm. Small bowel is not dilated. There is diverticulosis of the colon without evidence of diverticulitis. The appendix is normal. Urinary bladder is normal. Prostate and seminal vesicles are unremarkable. There is no intraperitoneal free air or free fluid. There are postoperative changes from L5-S1 discectomy. IMPRESSION: Atherosclerosis. No acute abnormality seen in the abdomen or pelvis. Reviewed: Reviewed by Pa Departure Communication (Admissions) 07--SPOKE WITH DR. NAVARRO, HE ADVISES TO ADMIT TO MEDICINE AND HE WILL SEE PT IN CONSULT 711--SPOKE WITH DR. LUNA, HOSPITALIST FOR DR. ROGEL'S PATIENTS. ACCEPTS PT FOR ADMIT. SHE WILL DO ADMIT ORDERS Impression Primary Impression: Dysphagia Additional Impression: Tonsillar cancer Disposition: ADMITTED INPATIENT Condition: Stable Admissions Decision to Admit Reason: Admit from ER (General) Decision to Admit/Date: Mar 31, 2023 Time/Decision to Admit Time: 07:10 Departure-Patient Inst. Referrals: JAMILA ROGEL DO (PCP/Family) Primary Care Physician ESTELLA FOUNTAIN DO Mar 31, 2023 06:23
[2023-03-31] MEDS ORDERED: HOLD METFORMIN - RECEIVED CONTRAST 20 ML VIAL IV SCH (06:30)
[2023-03-31] MEDS ORDERED: CATHETER FLUSH 10 ML SYR IV PRN (06:30)
[2023-03-31] MEDS ORDERED: NS 100 ML (IVPB) BAG IV ONE (06:30)
[2023-03-31] MEDS ORDERED: IOHEXOL 350 MG/ML 100 ML (OMNIPAQUE 350) VIAL IV ONE (06:30)
--- NOTE | 2023-03-31 07:01 | Diagnostic Imaging Report ---
INDICATION: Abdominal pain, throat cancer CT neck, chest, abdomen and pelvis with IV contrast. CT NECK: The epiglottis is normal. There is no prevertebral soft tissue swelling. Thyroid is normal. Parotid glands are normal. Submandibular glands are unremarkable. There is left-sided pharyngeal mucosal thickening with loss of the parapharyngeal fat planes on the left. There is a 8 mm lesion in the right pharyngeal mucosa is hyperemic rim in a low density center. This could be a tiny abscess. IMPRESSION: Left sided mucosal thickening with loss of the parapharyngeal fat planes. This may be the primary location for the clinical history of throat cancer. There is a small lesion on the right side in the tonsil that could be a small abscess. CT CHEST: Lungs are clear. There are no effusions or pneumothoraces. There is no hilar or mediastinal lymphadenopathy. IMPRESSION: Unremarkable CT chest. CT abdomen pelvis with contrast The liver appears normal. Gallbladder surgically absent. Pancreas is normal. Spleen is not enlarged. Kidneys and adrenals appear normal. There is calcific atherosclerosis of aorta with some mural thrombus but no discrete aneurysm. Small bowel is not dilated. There is diverticulosis of the colon without evidence of diverticulitis. The appendix is normal. Urinary bladder is normal. Prostate and seminal vesicles are unremarkable. There is no intraperitoneal free air or free fluid. There are postoperative changes from L5-S1 discectomy. IMPRESSION: Atherosclerosis. No acute abnormality seen in the abdomen or pelvis. Dictated by: Dictated on workstation # [id number]
--- NOTE | 2023-03-31 07:57 | History & Physical ---
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 IVF given and he was admitted and Dr Ramires will attempt to place PEG endoscopically today. If unable to place in endo he will need an open procedure on Monday. Source: patient, family, RN/MD, old records Exam Limitations: clinical condition Date Seen 03/31/23 Time Seen by a Provider: 12:00 Attending Physician Beth Phillips DO PCP Admitting Physician: Attending Physician: Referring Physician Date of Admission Home Medications & Allergies Home Medications Reviewed patient Home Medication Reconciliation performed by pharmacy medication reconciliations geochemical laboratory technician and/or nursing. Patients Allergies have been reviewed. Allergies Allergies Coded Allergies morphine (Verified Adverse Reaction, Mild, NAUSEA, 03/31/23) Past Zdwfbgh-Jxcewc-Opmvtc Hx Past Med/Social Hx: Reviewed Nursing Past Med/Soc Hx, Reviewed and Corrections made Patient Social History Marrital Status: Employed/Student: retired Smoking Status: Former Smoker Past Medical History Surgeries: Gallbladder, Orthopedic, Tonsillectomy, Vascular Surgery Gastrointestinal: Gall Bladder Disease Musculoskeletal: Degenerate Disk Disease, Chronic Back Pain Did You Recieve Any Treatments: Yes What Type of Treatment Did You: Radiation, Surgical Intervention Cancer: TONSILLAR CANCER DX JANUARY 2023 TONSILLECTOMY / THROAT SURGERY 02/08/23 CURRENTLY RECEIVING RADIATION OF 03/31/23 Family History SOCIAL HISTORY: -SMOKED 1 PPD, QUIT FEBRUARY 2023 -DENIES ETOH -DENIES DRUGS PAST SURGICAL HISTORY: -LUMBAR SPINE SURGERY--FUSION AND CAGE -CHOLECYSTECTOMY -TONSILLECTOMY WITH THROAT SURGERY 02/08/23 AT FOR TONSILLAR CANCER. COMPLICATED BY LEFT CAROTID ARTERY RUPTURE ON 02/11/23 AND HAD SURGICAL REPAIR. Review of Systems Constitutional: see HPI EENTM: throat pain, throat swelling Physical Exam Physical Exam Vital Signs Vital Signs - First Documented 03/31/23 03/31/23 03/31/23 04:08 09:50 10:44 Temp 36.6 Pulse 65 Resp 18 B/P (MAP) 134/87 (103) Pulse Ox 97 O2 Delivery Room Air O2 Flow Rate 0.00 FiO2 21 Capillary Refill : Less Than 3 Seconds Height, Weight, BMI Height: 6'2.00" Weight: 220lbs. 0.0oz. 99.033462ia; 25.00 BMI Method:Stated General Appearance: WD/WN, Chronically ill, Other (LOOKS UNCOMFORTABLE; CONSTANTLY GAGGING AND SPITTING UP SALIVA. ) HEENT: PERRL/EOMI, Other (DIFFICULTY FULLY OPENING MOUTH DUE TO THROAT PAIN. THERE DOES APPEAR TO BE EDEMA AND ERYTHEMA TO POSTERIOR PHARYNX BUT LIMITED VISUALIZATION DUE TO PT DISCOMFORT) Neck: Normal Inspection Respiratory: Normal Breath Sounds, No Accessory Muscle Use, No Respiratory Distress Cardiovascular: Regular Rate, Rhythm, No JVD, No Murmur, Normal Peripheral Pulses Gastrointestinal: Soft, Tenderness (MILD EPIGASTRIC TENDERNESS) Back: No CVA Tenderness Extremity: Normal Capillary Refill, Normal Inspection, No Pedal Edema Neurologic/Psychiatric: Alert, Oriented x3, No Motor/Sensory Deficits, contracts paralegal II- XII Norm as Tested Skin: Normal Color, Warm/Dry Results Results/Procedures Labs Laboratory Tests 03/31/23 04:15 Patient resulted labs reviewed. 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
--- NOTE | 2023-03-31 09:03 | Diagnostic Imaging Report ---
INDICATION: Head and neck cancer. COMPARISON: 11/11/2019. FINDINGS: Lungs clear. No failure, effusion or pneumothorax. Hilar and mediastinal contours normal. No suspicious nodularity. IMPRESSION: Stable negative chest. Dictated by: Dictated on workstation # [id number]
[2023-03-31] MEDS ORDERED: BISACODYL 10 MG SUPPOSITORY PR PRN (09:15)
[2023-03-31] MEDS ORDERED: LORazepam INJ 2 MG/ML (ATIVAN) VIAL IVP PRN (09:15)
[2023-03-31] MEDS ORDERED: ENOXAPARIN 40 MG/0.4 ML (LOVENOX) SYR SC SCH (09:15)
[2023-03-31] MEDS ORDERED: polyethylene glycoL POWDER 17 GM (MIRALAX) PACK PO PRN (09:15)
[2023-03-31] MEDS ORDERED: MILK OF MAGNESIA 400 MG/5 ML 30 ML UDC PO PRN (09:15)
[2023-03-31] MEDS ORDERED: CALCIUM CARBONATE 500 MG CHEW TABLET PO PRN (09:15)
[2023-03-31] MEDS ORDERED: diphenhydrAMINE 25 MG TAB (BENADRYL) PO PRN (09:15)
[2023-03-31] MEDS ORDERED: ANTACID SUSP 30 ML UDC (MYLANTA) PO PRN (09:15)
[2023-03-31] MEDS ORDERED: MELATONIN 3 MG TABLET PO PRN (09:15)
[2023-03-31] MEDS ORDERED: ONDANSETRON 4 MG (ZOFRAN) ORAL DISSOLVE TAB PO PRN (09:15)
[2023-03-31] MEDS ORDERED: diphenhydrAMINE 50 MG/ML INJ (BENADRYL) IVP PRN (09:15)
[2023-03-31] MEDS ORDERED: LACTULOSE SYRUP 10GM/15ML (ENULOSE) 30ML UDC PO PRN (09:15)
[2023-03-31] MEDS ORDERED: ACETAMINOPHEN 325 MG TABLET PO PRN (09:15)
[2023-03-31] MEDS: D5 NS 1,000 ML IV SOLN 1,000 ML IV SCH ×2 (09:28→20:15)
[2023-03-31] MEDS ORDERED: RT-ALBUTEROL/IPRATROPIUM 3 ML (DUONEB) VIAL INH PRN (10:00)
[2023-03-31] MEDS ORDERED: HURRICAINE EXT TUBE (BENZOCAINE) XX PRN (12:00)
[2023-03-31] MEDS ORDERED: LACTATED RINGERS 1,000 ML IV STA (12:00)
--- NOTE | 2023-03-31 12:32 | Consultation - Surgery ---
History of Present Illness History of Present Illness Patient Consulted On(aly/time) 03/31/23 12:27 Date Seen by Provider: Mar 31, 2023 Time Seen by Provider: 12:27 History of Present Illness Consult requested by Dr. Burton for PEG tube/dysphagia. 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 Been having increasing difficulty keeping secretions down. Stomach upset cause not able to e at. Had ct scan: Left sided mucosal thickening with loss of the parapharyngeal fat planes. This may be the primary location for the clinical history of throat cancer. There is a small lesion on the right side in the tonsil that could be a small abscess. Abdomen and pelvis no acute abnormality Allergies and Home Medications Allergies Coded Allergies: morphine (Verified Adverse Reaction, Mild, NAUSEA, 03/31/23) Patient Home Medication List Home Medication List Reviewed: Yes Acetaminophen (Acetaminophen) 160 Mg/5 Ml (5 Ml) Solution, 500 MG PO BID, (Reported) Entered as Reported by: LEE BURNETT on 03/30/23948 Amlodipine/Atorvastatin (Amlodipine-Atorvast 10-40 mg) 10 Mg-40 Mg Tablet, 1 EACH PO HS, (Reported) Entered as Reported by: LEE BURNETT on 03/30/23948 Fenofibrate,Micronized (Fenofibrate) 134 Mg Capsule, 134 MG PO DAILY, (Reported) Entered as Reported by: LEE BURNETT on 03/30/23948 Fluoxetine HCl (Prozac) 20 Mg Capsule, 20 MG PO DAILY, (Reported) Entered as Reported by: LEE BURNETT on 03/30/23948 Gabapentin (Gabapentin) 600 Mg Tablet, 300 MG PO TID, (Reported) Entered as Reported by: LEE BURNETT on 03/30/23948 Hydrocodone Bit/Acetaminophen (HYDROcodone/APAP 10/325 TABLET) 1 Each Tablet, (Reported) Entered as Reported by: RICHARD CAIN on 02/10/18715 Methocarbamol (Methocarbamol) 750 Mg Tablet, (Reported) Entered as Reported by: RICHARD CAIN on 02/10/18 0716 Discontinued Medications Hydrocodone Bit/Acetaminophen (HYDROcodone/APAP 10/325 TABLET) 1 Each Tablet, 1 EACH PO Q6H PRN for PAIN Discontinued Reason: No Longer Taking Prescribed by: RONY SMITH on 02/10/18 0914 Nortriptyline HCl (Nortriptyline HCl) 10 Mg Capsule, (Reported) Discontinued Reason: No Longer Taking Entered as Reported by: RICHARD CAIN on 02/10/18 0716 Past Tzzxphx-Zzqvur-Dngrig Hx Patient Social History Smoking Status: Former Smoker Alcohol Use?: No Surgeries History of Surgeries: Yes Surgeries: Gallbladder, Orthopedic, Tonsillectomy, Vascular Surgery Respiratory History of Respiratory Disorde: No Cardiovascular History of Cardiac Disorders: No Neurological History of Neurological Disord: No Genitourinary History of Genitourinary Disor: No Gastrointestinal History of Gastrointestinal Di: Yes (S/P CHOLECYSTECTOMY) Gastrointestinal Disorders: Gall Bladder Disease Musculoskeletal History of Musculoskeletal Dis: Yes (LUMBAR SPINE SURGERY--CAGE AND FUSION) Musculoskeletal Disorders: Degenerate Disk Disease, Chronic Back Pain Endocrine History of Endocrine Disorders: No HEENT History of HEENT Disorders: Yes (TONSILLAR CANCER DX JANUARY 2023) Cancer History of Cancer: Yes (TONSIILAR) Psychosocial History of Psychiatric Problem: No Reviewed Nursing Assessment Reviewed/Agree w Nursing PMH: Yes Family Medical History Significant Family History: No Pertinent Family Hx Review of Systems-General Constitutional: No chills, No diaphoresis EENTM: No blurred vision, No double vision Respiratory: No cough, No dyspnea on exertion Cardiovascular: No chest pain, No palpitations Gastrointestinal: abdominal pain (upset stomach); No nausea, No vomiting Genitourinary: No decreased output, No discharge Musculoskeletal: No back pain, No joint pain Skin: No change in color, No change in hair/nails Psychiatric/Neurological: Denies Anxiety, Denies Depressed, Denies Emotional Problems All Other Systems Reviewed Negative Unless Noted: Yes (Negative excepted noted.) Physical Exam-General Problems Physical Exam Vital Signs Vital Signs - First Documented 03/31/23 03/31/23 03/31/23 04:08 09:50 10:44 Temp 36.6 Pulse 65 Resp 18 B/P (MAP) 134/87 (103) Pulse Ox 97 O2 Delivery Room Air O2 Flow Rate 0.00 FiO2 21 Capillary Refill : Less Than 3 Seconds General Appearance: WD/WN, no apparent distress HEENT: PERRL/EOMI, normal ENT inspection Neck: non-tender, supple, other (scar left neck) Respiratory: chest non-tender, no respiratory distress, no accessory muscle use Cardiovascular: regular rate, rhythm, no JVD Gastrointestinal: non tender, soft Rectal: deferred Back: no CVA tenderness, no vertebral tenderness Extremities: non-tender, normal inspection Neurologic/Psychiatric: alert, normal mood/affect, oriented x 3 Skin: normal color, warm/dry Lymphatic: no adenopathy Data Review Labs Laboratory Tests 03/31/23 04:06: Urine Color YELLOW, Urine Clarity CLEAR, Urine pH 6.5, Urine Specific [place] 1.010L, Urine Protein NEGATIVE, Urine Glucose (UA) NEGATIVE, Urine Ketones NEGATIVE, Urine Nitrite NEGATIVE, Urine Bilirubin NEGATIVE, Urine Urobilinogen 1.0, Urine Leukocyte Esterase NEGATIVE, Urine RBC (Auto) NEGATIVE, Urine RBC NONE, Urine WBC NONE, Urine Crystals NONE, Urine Bacteria NEGATIVE, Urine Casts NONE, Urine Mucus NEGATIVE, Urine Culture Indicated NO 03/31/23 04:15: White Blood Count 5.6, Red Blood Count 4.70, Hemoglobin 13.9, Hematocrit 42, Mean Corpuscular Volume 89, Mean Corpuscular Hemoglobin 30, Mean Corpuscular Hemoglobin Concent 33, Red Cell Distribution Width 12.2, Platelet Count 239, Mean Platelet Volume 10.1, Immature Granulocyte % (Auto) 0, Neutrophils (%) (Auto) 62, Lymphocytes (%) (Auto) 20, Monocytes (%) (Auto) 12, Eosinophils (%) (Auto) 5, Basophils (%) (Auto) 1, Neutrophils # (Auto) 3.5, Lymphocytes # (Auto) 1.1, Monocytes # (Auto) 0.7, Eosinophils # (Auto) 0.3, Basophils # (Auto) 0.0, Immature Granulocyte # (Auto) 0.0, Prothrombin Time 13.2, INR Comment 1.0, Activated Partial Thromboplast Time 30, Sodium Level 141, Potassium Level 4.1, Chloride Level 106, Carbon Dioxide Level 26, Anion Gap 9, Blood Urea Nitrogen 10, Creatinine 0.94, Estimat Glomerular Filtration Rate 98, BUN/Creatinine Ratio 11, Glucose Level 110H, Calcium Level 10.2H, Corrected Calcium 9.9, Total Bilirubin 0.5, Aspartate Amino Transf (AST/SGOT) 22, Alanine Aminotransferase (ALT/SGPT) 25, Alkaline Phosphatase 46, Total Protein 7.2, Albumin 4.4, Amylase Level 115, Lipase 29, TSH [place] Testing 0.58, Monoscreen NEGATIVE 03/31/23 04:17: Influenza Type A (RT-PCR) Not Detected, Influenza Type B (RT-PCR) Not Detected, SARS-CoV-2 RNA (RT-PCR) Not Detected 03/31/23 04:35: Lactic Acid Level 0.65 03/31/23 05:15: Group A Streptococcus Screen NEGATIVE Assessment/Plan Assessment/Plan Assessment/Plan dysphagia with radiation treatment tonsillar cancer we were planning on peg tube monday. having more difficulties will attempt to place today, he understands risks and benefits and chance of perforation. NPO IV hydration discussed his ct results consent for PEG Today, if not successful would need open gastrostomy tube placement which he understands and would wish to proceed. PEGGY NAVARRO DO Mar 31, 2023 12:32
[2023-03-31] MEDS ORDERED: PROPOFOL INJECTION 50 ML IV ONE ×2 (12:47→13:13)
[2023-03-31] MEDS ORDERED: MIDAZOLAM 2 MG/2 ML (VERSED) VIAL ONE (12:47)
--- NOTE | 2023-03-31 13:47 | Anesthesia-General Post-Op ---
MAC Patient Condition Mental Status/LOC: Same as Preop Cardiovascular: Satisfactory Nausea/Vomiting: Absent Respiratory: Satisfactory Pain: Controlled Complications: Absent Post Op Complications Complications None Follow Up Care/Instructions Patient Instructions None needed. Anesthesiology Discharge Order Discharge Order Patient is doing well, no complaints, stable vital signs, no apparent adverse anesthesia problems. No complications reported per nursing. NIKKO DE LUNA CRNA Mar 31, 2023 13:47
--- NOTE | 2023-03-31 14:17 | Progress Note-Post Operative ---
Post-Operative Progess Note Surgeon (s)/Cutter In (s) Surgeon LEXA MORATAYA DO Cutter In: Keyla Pre-Operative Diagnosis Tongue CA, dysphagia Post-Operative Diagnosis Same Procedure & Operative Findings Date of Procedure 03/31/23 Procedure Performed/Findings PEG tube placement Dr. Ramires performed EGD, he inflated the stomach where that was visualized and it was ballottable. The areas on the stomach was prepped and draped in sterile fashion. Local anesthetic was infiltrated. A #11 blade scalpel was used to make a small stab incision. Angiocath needle was inserted through the incision and the needle was removed. This was then snared by Dr. Ramires where the guidewire was inserted, which he brought out through the mouth. The gastrostomy tube was attached to the wire, which then I pulled slowly until this was brought out through the abdominal incision and a bolster was up against the stomach and abdominal wall. This was then secured with an external bolster and cut to length and was inserted on the tube. The betadine gel and drain sponger were placed and the area was then washed, dried and sterile bandages were applied. The patient tolerated the procedure well. Please see Dr. Ramires dictation for EGD. Anesthesia Type IV sedation by LICENSED PSYCHOLOGIST DIRECTOR Estimated Blood Loss Estimated blood loss (mL): scant Specimens/Packing Specimens Removed none LEXA MORATAYA DO Mar 31, 2023 14:17
--- NOTE | 2023-03-31 14:26 | Progress Note-Post Operative ---
Post-Operative Progess Note Surgeon (s)/Wood Box Maker (s) Surgeon PEGGY NAVARRO DO Wood Box Maker: Vanessa Pre-Operative Diagnosis Tongue CA, dysphagia Post-Operative Diagnosis same Procedure & Operative Findings Date of Procedure 03/31/23 Procedure Performed/Findings egd for gastrastomy tube Anesthesia Type per service station attendant Estimated Blood Loss Estimated blood loss (mL): none Specimens/Packing Specimens Removed na PEGGY NAVARRO DO Mar 31, 2023 14:26
--- NOTE | 2023-03-31 14:33 | Discharge Inst-Simple/Standard ---
Discharge Inst-Standard Patient Instructions/Follow Up Plan of Care/Instructions/FU: 2 weeks Keyla Activity as Tolerated: No Discharge Diet: Liquid Diet Other Inst to Patient Follow up Appt: Make appointment for 2 week. Instructions: No strenuous activity. May shower in 24 hours, no tub bath or soaking. Use incentive spirometer at home as directed. No Smoking Skin/Wound Care: Rotate the bolster on the skin 2-3 times per day, changing the location of the pressure on the skin. Flush gastrostomy tube daily and after use with 20 mL of water. Symptoms to Report: Appetite Changes, Extremity Discoloration, Numbness/Tingling, Swelling Increased, Bleeding Excessive, Eyesight Changes, Pain Increased, Urine Color Change, Constipation(Persistent), Fever over 101 degree F, Pain/Pressure in chest, Urinating Difficulty, Cough Up/Vomit Blood, Heart Beat Irreg/Pounding, Pain/Pressure in jaw, Vaginal Bleeding Increase, Cramps in feet or legs, Lightheadedness, Pain/Pressure in shoulder, Diarrhea(Persistent), Memory Changes Suddenly, Questions/Concerns, Weight gain consecutive days, Dizziness/Fainting, Nausea/Vomiting, Shortness of Breath, Weight gain over 2 pounds If questions or concerns contact your physician Or seek help at emergency department. PEGGY NAVARRO DO Mar 31, 2023 14:33
[2023-03-31] MEDS: HYDROmorphone 2 MG/ML VIAL (DILAUDID) IV PRN ×3 (15:28→20:28)
[2023-03-31] MEDS ORDERED: GABA-490 PO (17:57)
[2023-03-31] MEDS ORDERED: ENAL-70 PO (17:57)
[2023-03-31] MEDS ORDERED: FLUO20CA48 PO (17:57)
[2023-03-31] MEDS ORDERED: PRAV40TA2 PO (17:57)
[2023-03-31] MEDS ORDERED: ASPI-999 PO (17:57)
[2023-03-31] MEDS ORDERED: HYDR-3820 PO (17:57)
[2023-03-31] MEDS ORDERED: GABAPENTIN 400 MG (NEURONTIN) CAP ONE (18:28)
[2023-03-31] MEDS ORDERED: GABAPENTIN 400 MG (NEURONTIN) CAP PO ONE (18:30)
[2023-03-31] MEDS ORDERED: HYDROcodone/ACETAMINOPHEN 10/325 TABLET PO PRN (20:00)
[2023-03-31] MEDS: SENNOSIDES 8.6 MG (SENOKOT) TAB PO SCH (20:15)
[2023-03-31] MEDS: GABAPENTIN 400 MG (NEURONTIN) CAP PO SCH (20:15)
[2023-03-31] MEDS: DOCUSATE SODIUM 100 MG CAPSULE PO SCH (20:15)
--- NOTE | 2023-03-31 23:59 | OPERATIVE REPORT ---
DATE OF SERVICE: 03/31/2023 PREOPERATIVE DIAGNOSES: Dysphagia and tonsillar cancer. POSTOPERATIVE DIAGNOSES: Dysphagia and tonsillar cancer. PROCEDURE: EGD for gastrostomy tube placement. SURGEON: Peggy Ramires DO JAVA WEB APPLICATION DEVELOPER: Kahlil Mendez DO. Please see his dictation for gastrostomy tube placement portion. INDICATIONS: The patient is a 52-year-old male undergoing radiation and having increasing dysphagia symptoms. He is concerned about swallowing. He wishes to proceed with percutaneous endoscopic gastrostomy tube placement. He understands and wishes to proceed. Consent was signed and in chart. DESCRIPTION OF PROCEDURE: The patient was taken to the endoscopy suite and placed in the supine position. Timeout was performed. Scope was inserted in the mouth, down the esophagus, stomach and into the duodenum without difficulty. No polyps, masses or ulcerations in the duodenum. Scope was slowly retracted back into stomach where it was further insufflated. It was visualized, pressure on the exterior abdomen [ ] which Dr. Mendez was doing. A snare was inserted through the scope into the stomach and this was used to snare the catheter. Prior to this, the scope was retroflexed noting no other pathology. Once the catheter had been snared, the guidewire was inserted and this was then snared. This was brought out through the mouth. The gastrostomy tube was attached to it and the scope was then reinserted following the gastrostomy tube as it was being pulled into the stomach. This had good placement. Scope was then slowly retracted back into the distal esophagus. No polyps, masses or ulcerations. Scope was slowly retracted back until completely removed. The patient tolerated the procedure well without any complications and was taken to recovery room in stable condition. Job ID: [id number] DocumentID: [id number] Dictated Date: 03/31/2023 16:20:40 Heat Treater Helper Date: 03/31/2023 19:56:00 Dictated By: PEGGY RAMIRES DO
[2023-04-01 00:56] VITALS: BP 127/74
[2023-04-01] MEDS: HYDROmorphone 2 MG/ML VIAL (DILAUDID) IV PRN ×2 (04:06→08:19)
[2023-04-01 04:09] VITALS: BP 140/65
[2023-04-01 05:54] LABS: BASOPHILS % (AUTO) 0 % (0-10); EOSINOPHILS # (AUTO) 0.2 10^3/uL (0.0-0.3); EOSINOPHILS % (AUTO) 4 % (0-10); HEMATOCRIT 39 % (40-54); HEMOGLOBIN 12.8 g/dL (13.3-17.7); LYMPHOCYTES # (AUTO) 1.1 10^3/uL (1.0-4.0); LYMPHOCYTES % (AUTO) 19 % (12-44); MEAN CORPUSCULAR HEMOGLOBIN 30 pg (25-34); MEAN CORPUSCULAR HGB CONC 33 g/dL (32-36); MEAN CORPUSCULAR VOLUME 90 fL (80-99); MEAN PLATELET VOLUME 10.3 fL (9.0-12.2); MONOCYTES # (AUTO) 0.6 10^3/uL (0.0-1.0); MONOCYTES % (AUTO) 11 % (0-12); NEUTROPHILS # (AUTO) 3.7 10^3/uL (1.8-7.8); NEUTROPHILS % (AUTO) 65 % (42-75); PLATELET COUNT 200 10^3/uL (130-400); WHITE BLOOD COUNT 5.6 10^3/uL (4.3-11.0)
[2023-04-01 06:05] LABS: ALBUMIN 3.8 GM/DL (3.2-4.5); POTASSIUM 3.9 MMOL/L (3.6-5.0)
[2023-04-01 06:06] LABS: CALCIUM 9.3 MG/DL (8.5-10.1)
[2023-04-01 06:07] LABS: TOTAL PROTEIN 6.2 GM/DL (6.4-8.2)
[2023-04-01 06:09] LABS: BILIRUBIN,TOTAL 0.5 MG/DL (0.1-1.0)
[2023-04-01 06:11] LABS: CREATININE SERUM 0.84 MG/DL (0.60-1.30)
--- NOTE | 2023-04-01 06:43 | Progress Note ---
Subjective Date Seen by a Provider: Apr 01, 2023 Time Seen by a Provider: 11:00 Focused Exam Lactate Level 03/31/23 04:35: Lactic Acid Level 0.65 Objective Exam Last Set of Vital Signs Vital Signs Date Time Temp Pulse Resp B/P (MAP) Pulse Ox O2 Delivery O2 Flow Rate FiO2 04/01/23 04:09 36.5 66 18 140/65 (90) 98 Room Air 03/31/23 13:23 10.00 03/31/23 09:50 21 Capillary Refill : Less Than 3 Seconds I&O Intake and Output 04/01/23 00:00 Intake Total 2900 ml Balance 2900 ml Intake Oral 350 ml IV Total 2550 ml # Voids 6 Daily Weight Change No Results Lab Laboratory Tests 04/01/23 05:12: White Blood Count 5.6, Red Blood Count 4.30, Hemoglobin 12.8L, Hematocrit 39L, Mean Corpuscular Volume 90, Mean Corpuscular Hemoglobin 30, Mean Corpuscular Hemoglobin Concent 33, Red Cell Distribution Width 12.4, Platelet Count 200, Mean Platelet Volume 10.3, Immature Granulocyte % (Auto) 0, Neutrophils (%) (Auto) 65, Lymphocytes (%) (Auto) 19, Monocytes (%) (Auto) 11, Eosinophils (%) (Auto) 4, Basophils (%) (Auto) 0, Neutrophils # (Auto) 3.7, Lymphocytes # (Auto) 1.1, Monocytes # (Auto) 0.6, Eosinophils # (Auto) 0.2, Basophils # (Auto) 0.0, Immature Granulocyte # (Auto) 0.0, Sodium Level 139, Potassium Level 3.9, Chloride Level 107, Carbon Dioxide Level 25, Anion Gap 7, Blood Urea Nitrogen 8, Creatinine 0.84, Estimat Glomerular Filtration Rate 105, BUN/Creatinine Ratio 10, Glucose Level 132H, Calcium Level 9.3, Corrected Calcium 9.5, Total Bilirubin 0.5, Aspartate Amino Transf (AST/SGOT) 19, Alanine Aminotransferase (ALT/SGPT) 21, Alkaline Phosphatase 40, Total Protein 6.2L, Albumin 3.8 Diagnosis/Problems Diagnosis/Problems (1) Dysphagia (2) Tonsillar cancer (3) Esophagitis (4) Malignant tumor of tonsil ZIA LUNA DO Apr 01, 2023 06:43
[2023-04-01 08:11] VITALS: BP 128/79
[2023-04-01] MEDS: GABAPENTIN 400 MG (NEURONTIN) CAP PO SCH ×2 (08:19→13:10)
[2023-04-01] MEDS: SENNOSIDES 8.6 MG (SENOKOT) TAB PO SCH (08:19)
[2023-04-01] MEDS: DOCUSATE SODIUM 100 MG CAPSULE PO SCH (08:19)
[2023-04-01] MEDS: D5 NS 1,000 ML IV SOLN 1,000 ML IV SCH (08:19)
[2023-04-01] MEDS ORDERED: CHLORASEPTIC SPRAY 177 ML LIQUID MC PRN (08:45)
[2023-04-01] MEDS ORDERED: ENALAPRIL MALEATE 40 MG PO SCH (09:00)
[2023-04-01] MEDS ORDERED: FLUoxetine HCL 20 MG (PROzac) CAP PO SCH (09:00)
[2023-04-01] MEDS ORDERED: NON-FORMULARY MEDICATION 1 EA EA (Pravastatin Sodium 40 MG) PO SCH (09:00)
[2023-04-01] MEDS ORDERED: ASPIRIN 81 MG CHEWABLE TABLET PO SCH (09:00)
[2023-04-01] MEDS ORDERED: ENALAPRIL 10 MG (VASOTEC) TAB PO SCH (09:00)
[2023-04-01] MEDS ORDERED: FENOFIBRATE 134 MG (LOFIBRA) CAPSULE PO SCH (09:00)
--- NOTE | 2023-04-01 09:10 | Progress Note - Surgery ---
Subjective Date Seen by a Provider: Apr 01, 2023 Time Seen by a Provider: 09:10 Subjective/Events-last exam Still with dysphagia. Pain controlled. Deneis any new complaints. Denies n/v fever sweats chills shortness of breath or chest pain. Focused Exam Lactate Level 03/31/23 04:35: Lactic Acid Level 0.65 Objective Exam Vital Signs Date Time Temp Pulse Resp B/P (MAP) Pulse Ox O2 Delivery O2 Flow Rate FiO2 04/01/23 08:11 36.5 55 18 128/79 (95) 96 Room Air 04/01/23 04:09 36.5 66 18 140/65 (90) 98 Room Air 04/01/23 00:56 36.7 59 18 127/74 (91) 95 Room Air 03/31/23 21:50 93 Room Air 03/31/23 20:00 Room Air 03/31/23 19:16 36.9 66 16 122/86 (98) 99 Room Air 03/31/23 15:21 36.6 69 16 125/79 (94) 99 Room Air 03/31/23 13:43 56 16 100 Room Air 03/31/23 13:38 54 16 100 Room Air 03/31/23 13:33 68 16 98 Room Air 03/31/23 13:28 69 16 97 Room Air 03/31/23 13:23 86 16 99 OxyMask 10.00 03/31/23 11:52 36.9 56 16 130/70 (90) 100 Room Air 03/31/23 10:44 Room Air 0.00 03/31/23 09:50 36.6 65 97 21 03/31/23 09:30 Room Air 03/31/23 09:23 36.2 56 16 128/72 (90) 98 Room Air 03/31/23 09:11 36.9 79 16 133/74 98 Room Air I & O 04/01/23 06:59 Intake Total 2000 ml Balance 2000 ml Capillary Refill : Less Than 3 Seconds General Appearance: WD/WN, Chronically ill, Other (LOOKS UNCOMFORTABLE; CONSTANTLY GAGGING AND SPITTING UP SALIVA. ) HEENT: PERRL/EOMI, Other (DIFFICULTY FULLY OPENING MOUTH DUE TO THROAT PAIN. THERE DOES APPEAR TO BE EDEMA AND ERYTHEMA TO POSTERIOR PHARYNX BUT LIMITED VISUALIZATION DUE TO PT DISCOMFORT) Neck: Normal Inspection Respiratory: Chest Non Tender, No Accessory Muscle Use, No Respiratory Distress Cardiovascular: Regular Rate, Rhythm, No JVD, Normal Peripheral Pulses Gastrointestinal: non tender, soft, other (gastrostomy tube luq) Extremity: Normal Capillary Refill, Normal Inspection, No Pedal Edema Neurologic/Psychiatric: Alert, Oriented x3, No Motor/Sensory Deficits, product development intern II- XII Norm as Tested Skin: Normal Color, Warm/Dry Results Lab Laboratory Tests 04/01/23 05:12: White Blood Count 5.6, Red Blood Count 4.30, Hemoglobin 12.8L, Hematocrit 39L, Mean Corpuscular Volume 90, Mean Corpuscular Hemoglobin 30, Mean Corpuscular Hemoglobin Concent 33, Red Cell Distribution Width 12.4, Platelet Count 200, Mean Platelet Volume 10.3, Immature Granulocyte % (Auto) 0, Neutrophils (%) (Auto) 65, Lymphocytes (%) (Auto) 19, Monocytes (%) (Auto) 11, Eosinophils (%) (Auto) 4, Basophils (%) (Auto) 0, Neutrophils # (Auto) 3.7, Lymphocytes # (Auto) 1.1, Monocytes # (Auto) 0.6, Eosinophils # (Auto) 0.2, Basophils # (Auto) 0.0, Immature Granulocyte # (Auto) 0.0, Sodium Level 139, Potassium Level 3.9, Chlo ride Level 107, Carbon Dioxide Level 25, Anion Gap 7, Blood Urea Nitrogen 8, Creatinine 0.84, Estimat Glomerular Filtration Rate 105, BUN/Creatinine Ratio 10, Glucose Level 132H, Calcium Level 9.3, Corrected Calcium 9.5, Total Bilirubi n 0.5, Aspartate Amino Transf (AST/SGOT) 19, Alanine Aminotransferase (ALT/SGPT) 21, Alkaline Phosphatase 40, Total Protein 6.2L, Albumin 3.8 Microbiology 03/31/23 MRSA Screen - Final, Complete MRSA not isolated Assessment/Plan Assessment/Plan Assessment/Plan dysphagia with radiation treatment tonsillar cancer tolerated egd/peg discussesd care of gastrostomy tube will flush daily and as needed. follow up 2 weeks PEGGY NAVARRO DO Apr 01, 2023 09:10
[2023-04-01 12:00] VITALS: BP 104/67
--- NOTE | 2023-04-01 12:13 | Discharge Summary ---
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 Former smoker DC home Discharge Summary Discharge Physical Examination Allergies: Coded Allergies: morphine (Verified Adverse Reaction, Mild, NAUSEA, 03/31/23) Vitals & I&Os Vital Signs Date Time Temp Pulse Resp B/P (MAP) Pulse Ox O2 Delivery O2 Flow Rate FiO2 04/01/23 13:30 36.3 04/01/23 12:00 67 20 104/67 (79) 95 Room Air 03/31/23 13:23 10.00 03/31/23 09:50 21 General Appearance: Alert, Oriented X3, Cooperative Respiratory: Clear to Auscultation Cardiovascular: Regular Rate Psych/Mental Status: Mental Status NL Hospital Course Was the Problem List Reviewed?: Yes Short course after he was admitted for severe N/V and unable to take PO due to radiation esophagitis and recent tonsillar resection due to cancer. PEG was placed and he was rehydrated and was able to DC home. Labs (last 24 hrs) Laboratory Tests 03/31/23 04:06: Urine Color YELLOW, Urine Clarity CLEAR, Urine pH 6.5, Urine Specific [place] 1.010L, Urine Protein NEGATIVE, Urine Glucose (UA) NEGATIVE, Urine Ketones NEGATIVE, Urine Nitrite NEGATIVE, Urine Bilirubin NEGATIVE, Urine Urobilinogen 1.0, Urine Leukocyte Esterase NEGATIVE, Urine RBC (Auto) NEGATIVE, Urine RBC NO NE, Urine WBC NONE, Urine Crystals NONE, Urine Bacteria NEGATIVE, Urine Casts NONE, Urine Mucus NEGATIVE, Urine Culture Indicated NO 03/31/23 04:15: White Blood Count 5.6, Red Blood Count 4.70, Hemoglobin 13.9, Hematocrit 42, Mean Corpuscular Volume 89, Mean Corpuscular Hemoglobin 30, Mean Corpuscular Hemoglobin Concent 33, Red Cell Distribution Width 12.2, Platelet Count 239, Mean Platelet Volume 10.1, Immature Granulocyte % (Auto) 0, Neutrophils (%) (Auto) 62, Lymphocytes (%) (Auto) 20, Monocytes (%) (Auto) 12, Eosinophils (%) (Auto) 5, Basophils (%) (Auto) 1, Neutrophils # (Auto) 3.5, Lymphocytes # (Auto) 1.1, Monocytes # (Auto) 0.7, Eosinophils # (Auto) 0.3, Basophils # (Auto) 0.0, Immature Granulocyte # (Auto) 0.0, Prothrombin Time 13.2, INR Comment 1.0, Activated Partial Thromboplast Time 30, Sodium Level 141, Potassium Level 4.1, Chloride Level 106, Carbon Dioxide Level 26, Anion Gap 9, Blood Urea Nitrogen 10, Creatinine 0.94, Estimat Glomerular Filtration Rate 98, BUN/Creatinine Ratio 11, Glucose Level 110H, Calcium Level 10.2H, Corrected Calcium 9.9, Total Bilirubin 0.5, Aspartate Amino Transf (AST/SGOT) 22, Alanine Aminotransferase (ALT/SGPT) 25, Alkaline Phosphatase 46, Total Protein 7.2, Albumin 4.4, Amylase Level 115, Lipase 29, TSH [place] Testing 0.58, Monoscreen NEGATIVE 03/31/23 04:17: Influenza Type A (RT-PCR) Not Detected, Influenza Type B (RT-PCR) Not Detected, SARS-CoV-2 RNA (RT-PCR) Not Detected 03/31/23 04:35: Lactic Acid Level 0.65 03/31/23 05:15: Group A Streptococcus Screen NEGATIVE 04/01/23 05:12: White Blood Count 5.6, Red Blood Count 4.30, Hemoglobin 12.8L, Hematocrit 39L, Mean Corpuscular Volume 90, Mean Corpuscular Hemoglobin 30, Mean Corpuscular Hemoglobin Concent 33, Red Cell Distribution Width 12.4, Platelet Count 200, Mean Platelet Volume 10.3, Immature Granulocyte % (Auto) 0, Neutrophils (%) (A uto) 65, Lymphocytes (%) (Auto) 19, Monocytes (%) (Auto) 11, Eosinophils (%) (Auto) 4, Basophils (%) (Auto) 0, Neutrophils # (Auto) 3.7, Lymphocytes # (Auto) 1.1, Monocytes # (Auto) 0.6, Eosinophils # (Auto) 0.2, Basophils # (Auto) 0.0, Immature Granulocyte # (Auto) 0.0, Sodium Level 139, Potassium Level 3.9, Chloride Level 107, Carbon Dioxide Level 25, Anion Gap 7, Blood Urea Nitrogen 8, Creatinine 0.84, Estimat Glomerular Filtration Rate 105, BUN/Creatinine Ratio 10, Glucose Level 132H, Calcium Level 9.3, Corrected Calcium 9.5, Total Bilirubin 0.5, Aspartate Amino Transf (AST/SGOT) 19, Alanine Aminotransferase (ALT/SGPT) 21, Alkaline Phosphatase 40, Total Protein 6.2L, Albumin 3.8 Microbiology 03/31/23 MRSA Screen - Final, Complete MRSA not isolated 03/31/23 Urine Culture - Final, Complete NO GROWTH Pending Labs Microbiology Date/Time Source Procedure Growth Status 03/31/23 10:00 Nasal MRSA Screen - Final MRSA not isolated Complete 03/31/23 05:53 Urine Clean Catch Urine Culture - Final NO GROWTH Complete 03/31/23 05:15 Throat Throat Culture - Preliminary No Beta Strep isolated Resulted Laboratory Tests 03/31/23 04:06: Urine Color YELLOW, Urine Clarity CLEAR, Urine pH 6.5, Urine Specific [place] 1.010, Urine Protein NEGATIVE, Urine Glucose (UA) NEGATIVE, Urine Ketones NEGATIVE, Urine Nitrite NEGATIVE, Urine Bilirubin NEGATIVE, Urine Urobilinogen 1.0, Urine Leukocyte Esterase NEGATIVE, Urine RBC (Auto) NEGATIVE, Urine RBC NONE, Urine WBC NONE, Urine Crystals NONE, Urine Bacteria NEGATIVE, Urine Casts NONE, Urine Mucus NEGATIVE, Urine Culture Indicated NO 03/31/23 04:15: White Blood Count 5.6, Red Blood Count 4.70, Hemoglobin 13.9, Hematocrit 42, Mean Corpuscular Volume 89, Mean Corpuscular Hemoglobin 30, Mean Corpuscular Hemoglobin Concent 33, Red Cell Distribution Width 12.2, Platelet Count 239, Mean Platelet Volume 10.1, Immature Granulocyte % (Auto) 0, Neutrophils (%) (Auto) 62, Lymphocytes (%) (Auto) 20, Monocytes (%) (Auto) 12, Eosinophils (%) (Auto) 5, Basophils (%) (Auto) 1, Neutrophils # (Auto) 3.5, Lymphocytes # (Auto) 1.1, Monocytes # (Auto) 0.7, Eosinophils # (Auto) 0.3, Basophils # (Auto) 0.0, Immature Granulocyte # (Auto) 0.0, Prothrombin Time 13.2, INR Comment 1.0, Activated Partial Thromboplast Time 30, Sodium Level 141, Potassium Level 4.1, Chloride Level 106, Carbon Dioxide Level 26, Anion Gap 9, Blood Urea Nitrogen 10, Creatinine 0.94, Estimat Glomerular Filtration Rate 98, BUN/Creatinine Ratio 11, Glucose Level 110, Calcium Level 10.2, Corrected Calcium 9.9, Total Bilirubin 0.5, Aspartate Amino Transf (AST/SGOT) 22, Alanine Aminotransferase (ALT/SGPT) 25, Alkaline Phosphatase 46, Total Protein 7.2, Albumin 4.4, Amylase Level 115, Lipase 29, TSH [place] Testing 0.58, Monoscreen NEGATIVE 03/31/23 04:17: Influenza Type A (RT-PCR) Not Detected, Influenza Type B (RT-PCR) Not Detected, SARS-CoV-2 RNA (RT-PCR) Not Detected 03/31/23 04:35: Lactic Acid Level 0.65 03/31/23 05:15: Group A Streptococcus Screen NEGATIVE 04/01/23 05:12: White Blood Count 5.6, Red Blood Count 4.30, Hemoglobin 12.8, Hematocrit 39, Mean Corpuscular Volume 90, Mean Corpuscular Hemoglobin 30, Mean Corpuscular Hemoglobin Concent 33, Red Cell Distribution Width 12.4, Platelet Count 200, Mean Platelet Volume 10.3, Immature Granulocyte % (Auto) 0, Neutrophils (%) (Auto) 65, Lymphocytes (%) (Auto) 19, Monocytes (%) (Auto) 11, Eosinophils (%) (Auto) 4, Basophils (%) (Auto) 0, Neutrophils # (Auto) 3.7, Lymphocytes # (Auto) 1.1, Monocytes # (Auto) 0.6, Eosinophils # (Auto) 0.2, Basophils # (Auto) 0.0, Immature Granulocyte # (Auto) 0.0, Sodium Level 139, Potassium Level 3.9, Chloride Level 107, Carbon Dioxide Level 25, Anion Gap 7, Blood Urea Nitrogen 8, Creatinine 0.84, Estimat Glomerular Filtration Rate 105, BUN/Creatinine Ratio 10, Glucose Level 132, Calcium Level 9.3, Corrected Calcium 9.5, Total Bilirubin 0.5, Aspartate Amino Transf (AST/SGOT) 19, Alanine Aminotransferase (ALT/SGPT) 21, Alkaline Phosphatase 40, Total Protein 6.2, Albumin 3.8 Discharge Home Medications: Active Scripts Active Promethazine Tablet (Promethazine HCl) 25 Mg Tablet 25 Mg PO Q6H PRN Reported Hydrocodone-Acetamin 10-325 mg (Hydrocodone/Acetaminophen) 10 Mg-325 Mg Tablet 1 Each PO BID PRN Fluoxetine HCl 20 Mg Capsule 20 Mg PO DAILY Enalapril Maleate 20 Mg Tablet 40 Mg PO DAILY Aspirin 81 Mg Tab.chew 81 Mg PO DAILY Pravastatin Sodium 40 Mg Tablet 40 Mg PO DAILY Gabapentin 400 Mg Capsule 400 Mg PO TID Acetaminophen 160 Mg/5 Ml (5 Ml) Solution 500 Mg PO BID Fenofibrate (Fenofibrate,Micronized) 134 Mg Capsule 134 Mg PO DAILY Instructions to patient/family Please see electronic discharge instructions given to patient. Diagnosis/Problems Diagnosis/Problems (1) Dysphagia (2) Tonsillar cancer (3) Esophagitis (4) Malignant tumor of tonsil ZIA LUNA DO Apr 01, 2023 12:12
[2023-04-01] MEDS ORDERED: PROM25TA14 PO (12:14)
[2023-04-01 15:00] VITALS: BP 104/67
== END 2023-04-01 15:08 | disposition home or self-care (01) | DRG 392 ==
LOC: EDUNIT# 03:25 → ER 03:28 → 4TH 08:59
PROVIDERS: ADMIT Internal Medicine; ATTEND Internal Medicine
PROC: 0DJ08ZZ Inspection of Upper Intestinal Tract, Via Natural or Artificial Opening Endoscopic (ICD-10-PCS; 2023-03-31)
PROC: 0DH63UZ Insertion of Feeding Device into Stomach, Percutaneous Approach (ICD-10-PCS; principal; 2023-03-31 12:50)
DX: K20.90 Esophagitis, unspecified without bleeding (principal); T50.8X5A Adverse effect of diagnostic agents, initial encounter; Z85.89 Personal history of malignant neoplasm of other organs and systems; Z90.89 Acquired absence of other organs; Z92.3 Personal history of irradiation; G89.29 Other chronic pain; M54.9 Dorsalgia, unspecified; Z20.822 Contact with and (suspected) exposure to COVID-19
CPT/HCPCS: 36415; 70491; 71045; 71260; 74176; 77386; 80053; 81000; 82150; 83605; 83690; 84443; 85025; 85610; 85730; 86308; 87040; 87081; 87088; 87430; 87636; 93041

== ENCOUNTER → 2023-04-03 | Outpatient (RCR) | payer MEDICARE ==
[~2023-04-03] MED LIST changes: +ASPI-999 PO; +ENAL-70 PO; +FLUO20CA48 PO; +GABA-490 PO; +HYDR-3820 PO; +PRAV40TA2 PO; +PROM25TA14 PO
== END | disposition home or self-care (01) ==
LOC: ONC 03-13 10:30
PROVIDERS: ATTEND Radiology Radiation Oncology
DX: Z51.0 Encounter for antineoplastic radiation therapy (principal); C09.9 Malignant neoplasm of tonsil, unspecified; E78.00 Pure hypercholesterolemia, unspecified; I10 Essential (primary) hypertension
CPT/HCPCS: 77300; 77301; 77334; 77336; 77338; 77386; 99205

== ENCOUNTER → 2023-04-19 | Outpatient (CLI) | payer MEDICARE ==
[~2023-04-19] MED LIST changes: +DIATRIZOATE MEGLUM/SODIUM 37% 120 ML (GASTROGRAFIN) PO ONE
--- NOTE | 2023-04-19 16:44 | Diagnostic Imaging Report ---
INDICATION: Evaluation of G-tube, G-tube positioning. COMPARISON: None available TECHNIQUE: 3 radiographs of the abdomen are obtained after injection of 30 mL of Gastrografin followed by 30 mL of water through the patient's percutaneous gastrostomy catheter. FINDINGS: The partially visualized lung bases demonstrate a 9 mm nodular density overlying the right lung base. Otherwise, the lung bases appear clear. Surgical clips are present within the right upper abdomen. Post surgical changes of the lumbosacral spine. Percutaneous gastrostomy catheter is present with the balloon overlying the left upper abdomen. The instilled contrast through the percutaneous gastrostomy catheter is identified within the lumen of the stomach. Nonobstructive bowel gas pattern. No significant free air. Minimal apex right curvature of the lumbar spine without acute osseous abnormality. IMPRESSION: Percutaneous gastrostomy catheter is present with the distal tip within the lumen of the stomach. Small nodular density overlying the right lung base. This is favored to simply relate to a nipple shadow. True pulmonary nodules not excluded. Dedicated radiographs of the chest would help to further evaluate. Additional postsurgical and chronic findings as above. Dictated by: Dictated on workstation # [id number]
== END ==
LOC: RAD 15:57
PROVIDERS: ATTEND Surgery
DX: R10.9 Unspecified abdominal pain (principal); R91.8 Other nonspecific abnormal finding of lung field; Z93.1 Gastrostomy status
CPT/HCPCS: 36598

== ENCOUNTER 2023-05-01 09:31 | Outpatient (RCR) | payer MEDICARE ==
[2023-04-14 11:05] VITALS: BP 92/57
[2023-04-18 11:00] VITALS: BP 98/64
[2023-04-18 11:32] LABS: CALCIUM 10.6 MG/DL (8.5-10.1); CREATININE SERUM 1.27 MG/DL (0.60-1.30); POTASSIUM 4.3 MMOL/L (3.6-5.0)
[2023-04-21] MEDS: NS IV 1000 ML 1,000 ML IV SCH (11:45)
[2023-04-21 11:49] VITALS: BP 115/75
[2023-04-27] MEDS: NS IV 1000 ML 1,000 ML IV SCH (10:07)
[2023-04-27 10:30] VITALS: BP 129/91
[~2023-05-01 09:31] MED LIST changes: +DEXAMETHASONE IV SCH; +DEXAMETHASONE SODIUM PHOSPHATE IV ONE; -DIATRIZOATE MEGLUM/SODIUM 37% 120 ML (GASTROGRAFIN) PO ONE; -GABA-490 PO; +GABA-491 PO; +NS IV 1000 ML 1,000 ML IV NR; +NS IV 1000 ML 1,000 ML IV SCH; +NS IV 1000 ML 1,000 ML ONE; +NS IV SCH; +ONDANSETRON INJECTION 4 MG/2 ML (SDV) IVP ONE; +ONDANSETRON IV ONE; +[UNRECOGNIZED DRUG - OTHER] IV ONE; +dexAMETHasone INJ 4 MG/ML SDV IV ONE; +dexAMETHasone INJ 4 MG/ML SDV IV SCH
== END 2023-05-04 | disposition home or self-care (01) ==
LOC: ONC 09:31
PROVIDERS: ATTEND Radiology Radiation Oncology
DX: Z51.0 Encounter for antineoplastic radiation therapy (principal); C09.9 Malignant neoplasm of tonsil, unspecified; E78.00 Pure hypercholesterolemia, unspecified; I10 Essential (primary) hypertension
CPT/HCPCS: 77386 ×2; G0463; 96360; 96374; 96375; 36415; 77336; 80048; 96361; 96365; 96366